=== PATIENT | female | born 1970 | race Caucasian/White ===

== ENCOUNTER 2016-10-24 19:20 | Emergency (ER) | payer MEDICARE, MEDICAID ==
[~2016-10-24] VITALS: Ht 163.8 cm; Wt 113.4 kg
[~2016-10-24 19:20] MED LIST: MOBIC15 MG PO; PREMARIN0.3 MG PO; SYNTHROID150 MCG PO; [UNRECOGNIZED DRUG - OTHER] PO; allergy med PO
[2016-10-24] MEDS ORDERED: PRILOSEC40 MG PO (23:34)
[2016-10-24] MEDS ORDERED: SINGULAIR10 MG PO (23:35)
[2016-10-24] MEDS ORDERED: LIORESAL10 MG PO (23:37)
== END 2016-10-24 22:50 | disposition short-term general hospital (02) ==
LOC: ER 19:20
DX: K21.9 Gastro-esophageal reflux disease without esophagitis (principal); K85.90 Acute pancreatitis without necrosis or infection, unspecified; M19.90 Unspecified osteoarthritis, unspecified site; E03.9 Hypothyroidism, unspecified; F17.210 Nicotine dependence, cigarettes, uncomplicated; Z90.49 Acquired absence of other specified parts of digestive tract; Z98.84 Bariatric surgery status; Z98.890 Other specified postprocedural states; Z79.899 Other long term (current) drug therapy; Z91.040 Latex allergy status; Z88.1 Allergy status to other antibiotic agents; Z88.5 Allergy status to narcotic agent
CPT/HCPCS: G0480; Q9963; Q9967

== ENCOUNTER 2016-12-01 18:23 | Emergency (ER) | payer MEDICARE, MEDICAID ==
[~2016-12-01] VITALS: Ht 162.6 cm; Wt 114.9 kg
[~2016-12-01 18:23] MED LIST changes: +LIORESAL10 MG PO; +PRILOSEC40 MG PO; +SINGULAIR10 MG PO
[2016-12-01] MEDS ORDERED: DUCODYL5 MG PO (18:57)
[2016-12-01] MEDS ORDERED: GINKGO60 MG PO (18:58)
[2016-12-01] MEDS ORDERED: FISH OIL1 GM PO (18:59)
[2016-12-01] MEDS ORDERED: TURMERIC500 MG PO (19:00)
[2016-12-01] MEDS ORDERED: VITAMIN B-121000 MCG PO (19:02)
[2016-12-01] MEDS ORDERED: GARLIC1 EAC1 PO (19:05)
[2016-12-01] MEDS ORDERED: [UNRECOGNIZED DRUG - OTHER] PO (19:06)
[2016-12-01] MEDS ORDERED: VITAMIN D400 UNI1 PO (19:08)
[2016-12-01] MEDS ORDERED: [UNRECOGNIZED DRUG - OTHER] PO (19:11)
[2016-12-01] MEDS ORDERED: GLUCOSAMINE PO (19:13)
== END 2016-12-01 20:05 | disposition short-term general hospital (02) ==
LOC: ER 18:23
DX: K21.9 Gastro-esophageal reflux disease without esophagitis (principal); E66.9 Obesity, unspecified

== ENCOUNTER → 2016-12-04 | Outpatient (CLI) | payer MEDICARE, MEDICAID ==
[~2016-12-04] MED LIST changes: +DUCODYL5 MG PO; +FISH OIL1 GM PO; +GARLIC1 EAC1 PO; +GINKGO60 MG PO; +GLUCOSAMINE PO; +TURMERIC500 MG PO; +VITAMIN B-121000 MCG PO; +VITAMIN D400 UNI1 PO; +[UNRECOGNIZED DRUG - OTHER] PO; +[UNRECOGNIZED DRUG - OTHER] PO
== END | disposition short-term general hospital (02) ==
LOC: CLORTH 03:18
DX: Z47.1 Aftercare following joint replacement surgery (principal); Z96.652 Presence of left artificial knee joint

== ENCOUNTER 2017-01-01 17:05 | Emergency (ER) | payer MEDICARE, MEDICAID ==
[~2017-01-01] VITALS: Ht 162.6 cm; Wt 113.4 kg
== END 2017-01-01 18:00 | disposition short-term general hospital (02) ==
LOC: ER 17:05
DX: J45.909 Unspecified asthma, uncomplicated (principal)

== ENCOUNTER 2017-05-21 20:51 | Emergency (ER) | payer MEDICARE, MEDICAID ==
[~2017-05-21] VITALS: Ht 162.6 cm; Wt 112.0 kg
== END 2017-05-21 21:30 | disposition short-term general hospital (02) ==
LOC: ER 20:51
DX: M79.605 Pain in left leg (principal); M79.604 Pain in right leg; F17.210 Nicotine dependence, cigarettes, uncomplicated; M19.90 Unspecified osteoarthritis, unspecified site; Z88.5 Allergy status to narcotic agent; Z88.8 Allergy status to other drugs, medicaments and biological substances; Z98.890 Other specified postprocedural states